=== PATIENT | male | born 1970 | race Caucasian/White ===

== ENCOUNTER 2016-12-15 19:14 | Inpatient (IN) ==
[2016-12-15] MEDS ORDERED: NS 1,000 ML IV ONE ×4 (19:34→22:51)
[2016-12-15 19:51] LABS: BASO% 0.2 % (0.0-0.8); EOS# 0.03 X1000 (0.0-0.7); EOS% 0.1 % (0.0-10.0); HEMATOCRIT 50.3 % (42.0-52.0); HEMOGLOBIN 17.7 g/dL (14.0-18.0); IMM GRAN# 0.09 X1000 (0.0-0.04); IMM GRAN% 0.4 % (0.0-0.5); LYMPH# 1.75 X1000 (1.2-3.4); LYMPH% 7.1 % (20.5-51.1); MANUAL DIFF NEEDED? NO; MCH 34.4 PG (27-31); MCHC 35.2 g/dL (33-37); MCV 97.9 FL (81-99); MONO# 2.11 X1000 (0.11-0.59); MONO% 8.6 % (1.7-9.3); MPV 10.2 FL (7.4-10.4); NEUT% 83.6 % (42.2-75.2); PLT 205 X1000 (130-400); RBC 5.14 XMIL (4.7-6.1)
[2016-12-15 20:34] LABS: ALBUMIN 5.4 g/dL (3.5-5.0); CALCIUM 10.1 mg/dL (8.8-10.2); MAGNESIUM 2.8 mg/dL (1.5-2.7); POTASSIUM 5.3 mmol/L (3.5-5.1); TOTAL BILIRUBIN 0.54 mg/dL (0.20-1.00); TOTAL PROTEIN 8.6 g/dL (6.3-8.3)
[2016-12-15] MEDS ORDERED: OFIRMEV 1000 MG/ISOTONIC SOLN 1,000 MG/100 ML BOTTLE IV ONE (20:51)
--- NOTE | 2016-12-15 20:55 | PROVIDER DOCUMENTATION ---
This chart was entered by Frida Casillas Scribe, acting as scribe for Carl Mays MD. HPI-General Adult - General Chief Complaint: Heat Related Stated Complaint: cramping, body ache Time Seen by Provider: 12/15/16 19:34 Source: patient Allergies/Adverse Reactions: Patient Allergies Allergy/AdvReac Type Severity Reaction Status Date / Time Sulfa (Sulfonamide Allergy RASH Verified 01/22/13 14:53 Antibiotics) Home Medications: Home Medication List Medication Instructions Recorded Confirmed Last Taken Type Benzonatate [Tessalon] 100 mg PO TID PRN PRN #30 capsule 08/05/15 Unknown Rx Folic Acid 1 mg PO DAILY #30 tablet 08/05/15 Unknown Rx Levofloxacin [Levaquin] 750 mg PO DAILY #7 tablet 08/05/15 Unknown Rx - History of Present Illness -Gen Adult Location of Pain/Injury: reports: generalized Pain Radiation: reports: no radiation Quality of Pain: reports: cramping Severity: reports: mild Onset/Duration: reports: last night Timing: reports: still present Associated Symptoms: reports: muscle aches, nausea, vomiting Similar Symptoms Previously?: No Recently seen or treated by another doctor?: No Review of Systems - Adult - REVIEW OF SYSTEMS - ADULT Constitutional: denies: chills, fever Eyes: reports: no symptoms reported Ears, Nose, Mouth & Throat: reports: no symptoms reported Cardiovascular: reports: no symptoms reported Respiratory: denies: cough, shortness of breath Gastrointestinal: reports: nausea, vomiting Genitourinary: denies: dysuria, hematuria Musculoskeletal: reports: muscle aches. denies: muscle weakness Integumentary: denies: skin sores/ulcer, skin thickening Neurological: reports: no symptoms reported Psychiatric: reports: no symptoms reported Endocrine: reports: no symptoms reported Hematologic/Lymphatic: reports: no symptoms reported Allergic/Immunologic: reports: no symptoms reported All Other Systems: Reviewed and Negative Past History - Adult - PAST MEDICAL HISTORY-ADULT Review of Records: reports: Nursing Assessment Review, Medications Reviewed Major Childhood Illnesses: reports: denies history - PRIOR SURGERIES/PROCEDURES Surgical/Procedure History: reports: none - IMMUNIZATION STATUS Childhood Immunizations: See Nurse Assessment Flu Vaccine: See Nurse Assessment - SOCIAL HISTORY Smoking: cigarettes Provider spent 3-5 mins advising pt. on dangers of tobacco.: Discussed manners to quit use, and f/u contacts for add'l counseling. Substance Use: none/never Alcohol Use Frequency: never Physical Exam-General - PHYSICAL EXAM-ADULT Initial Vital Signs Reviewed: Yes - CONSTITUTIONAL General Appearance: appears well, alert, no apparent distress - RESPIRATORY Respiratory: chest non-tender, lungs clear, normal breath sounds - CARDIOVASCULAR Cardiovascular: normal peripheral pulses, regular rate, rhythm, no edema - GASTROINTESTINAL (ABDOMEN) Abdominal Exam: non tender, soft - MUSCULOSKELETAL Extremity: normal inspection - SKIN Integumentary: normal color, normal turgor, warm/dry - PSYCHIATRIC Psych/Mental Status: normal mood/affect, normal thought content, normal thought process, oriented x 3 Progress - PLAN OF CARE/RESULTS Progress/Plan/Lab Results: Vital Signs - 8 hr 12/15/16 19:22 Temperature 97.2 F L Pulse Rate 112 H Respiratory Rate 26 H Blood Pressure 149/76 O2 Sat by Pulse Oximetry 100 Orders Category Date Time Status CBC WITH ELECTRONIC DIFF [HEME] Stat Lab 12/15/16 19:39 Ordered CMP [COMPREHENSIVE METABOLIC PANEL] [CHEM] Stat Lab 12/15/16 19:39 Ordered MAGNESIUM [CHEM] Stat Lab 12/15/16 19:39 Ordered UA [UA NIMS W/REFLEX CULT] [URINALYSIS] Stat Lab 12/15/16 19:34 Uncollected UDS [URINE DRUG SCREEN] Stat Lab 12/15/16 19:41 Uncollected 0.9% Sodium Chloride Inj [Ns] 1,000 ml Med 12/15/16 19:34 Active IV 999 mls/hr Ns 1000 ml IV Bolus X1 Med 12/15/16 19:41 Ordered 0.9% Sodium Chloride Inj [Ns] 1,000 ml IV 999 mls/hr Result Diagrams: 12/15/16 19:35 12/15/16 19:35 - REASSESSMENT Reassessment #1 Time Reassessed: 20:52 (pt states he does not use recreational drugs) Status: improving - EKG 1 Time of EKG reading by physician:: 19:24 EKG Read and Signed by:: Carl Mays EKG Interpretation (*Must complete 3 of following elements*): Abnormal Rate: 107 Rhythm: sinus tachycardia Comments: possible LAE 2 Time of EKG reading by physician:: 20:12 EKG Read and Signed by:: Carl Mays EKG Interpretation (*Must complete 3 of following elements*): Normal Rate: 86 Rhythm: NSR [place]: normal Departure - Departure Date of Disposition Decision: 12/15/16 Time of Disposition Decision: 20:53 DIAGNOSIS: PATRICIA (acute kidney injury) Rhabdomyolysis Qualifiers: Rhabdomyolysis type: non-traumatic Qualified Code(s): M62.82 - Rhabdomyolysis Disposition: ADMITTED INPATIENT 09 Certified Medical Emergency: Emergent Condition: Fair Referrals and Follow-Ups: None,PCP [Primary Care Provider] - - Critical Care Note This patient required my direct & personal management of CC.: No Attestation - Physician/ CRESENCIO Attestation Patient care was provided by Advanced Practice Provider:: No The physician spent face to face time with patient:: Yes Advanced Practice Provider documentation review:: Supervising physician onsite and consulted in the evaluation and care of this patient. The physician did have a face to face encounter with the patient. This chart was documented by the indicated scribe, (Frida Casillas Scribe) and accurately reflects the services I performed and decisions made by me, Carl Mays MD, as attested by the provider's signature.
[2016-12-15 21:35] LABS: URINE CULTURE NEEDED? NO; URINE SOURCE CLEAN CATCH
[2016-12-15 21:40] LABS: BILIRUBIN URINE NEGATIVE (NEGATIVE); BLOOD URINE LARGE (NEGATIVE); COLOR YELLOW; GLUCOSE URINE NEGATIVE (NEGATIVE); LEUKOCYTES URINE NEGATIVE (NEGATIVE); NITRITE URINE NEGATIVE (NEGATIVE); PH URINE 5.5; PROTEIN URINE 70 mg/dL (NEGATIVE); SP GRAVITY URINE 1.014; TURBIDITY URINE CLEAR (CLEAR); UROBILINOGEN URINE NORMAL (NORMAL)
[2016-12-15 21:42] LABS: URINE MICRO REVIEW NEEDED? YES
[2016-12-15 21:51] LABS: UR EPITHELIAL CELLS <10 /HPF (<10); URINE BACTERIA NEGATIVE /HPF; URINE RBC 20-40 /HPF (<10); URINE WBC <10 /HPF (<10)
[2016-12-15 21:54] LABS: UR AMPHETAMINES QUAL NONE DETECTED (NONE DETECT); UR BARBITUATES QUAL NONE DETECTED (NONE DETECT); UR BENZODIAZEPIN QUAL NONE DETECTED (NONE DETECT); UR CANNABINOIDS QUAL PRESUMPTIVE POSITIVE (NONE DETECT); UR COCAINE QUAL NONE DETECTED (NONE DETECT); UR METHADONE QUAL NONE DETECTED (NONE DETECT); UR OPIATES QUAL NONE DETECTED (NONE DETECT); UR OXYCODONE QUAL PRESUMPTIVE POSITIVE (NONE DETECT); UR PCP QUAL NONE DETECTED (NONE DETECT)
[2016-12-15 21:56] LABS: URINE CASTS GRANULAR PRESENT; URINE CRYSTALS NONE SEEN; URINE SMALL ROUND CELLS NONE SEEN
[2016-12-15] MEDS ORDERED: HYDROXYZINE PO PRN (22:51)
[2016-12-15] MEDS ORDERED: ZOFRAN IV PRN (22:51)
[2016-12-15] MEDS: HEPARIN SUBQ SCH (23:06)
[2016-12-15] MEDS: TYLENOL PO PRN (23:06)
--- NOTE | 2016-12-16 03:22 | HISTORY AND PHYSICAL ---
PRIMARY CARE PHYSICIAN: No primary care physician. REASON FOR ADMISSION: Confusion, weakness, and diffuse cramping for the last 2 days. HISTORY OF PRESENT ILLNESS: Mr. Ralph Edmonds is a 46-year-old man with no significant past medical history who is brought in by his daughter because yesterday he had protracted vomiting and was mildly confused and stuporous. Patient was last admitted here in July of 2015 for pneumonia, acute kidney injury, and sepsis. Today, the patient and the daughter report that he has been working outside in the intense heat, sweating excessively for the past 1 week. Two days ago, he started becoming weak and nauseous. Yesterday he started vomiting no less than 10 times and the daughter estimates that he vomited close to 2 gallons of vomitus. No blood or coffee grounds noted. She also reports that the patient had delayed response to her question and was intermittently "spaced out." Patient complained that over the last 36 hours, he has been having intense cramps to the point that he is unable to sleep at night. The cramps are intermittent, diffuse, and can last anywhere from 5-10 minutes and spontaneously go away, only to return in a few minutes. He denies any diarrhea, any abdominal pain. He denies any cardiorespiratory complaints. He noted that his urine output has been getting progressively less over the last 2 days and has been dark. No hematuria. No flank pain. No fever or chills. No headache, neck stiffness. No focal weakness, numbness, or tingling. REVIEW OF SYSTEMS: Patient denies any ingestion of any illicit substances or change in any medication. Positive findings per HPI. ALLERGIES: Sulfa. HOME MEDICATION: None. SOCIAL HISTORY: Smokes 1 pack a day. No alcohol or illicit drug use per the patient. SURGICAL HISTORY: Negative. FAMILY HISTORY: No diabetes or heart disease or cancer in first-degree relatives. LAB WORK: Blood white count 24,000, hemoglobin and hematocrit 17 and 50, platelets 205,000, 83% neutrophils. Sodium 135, potassium 5.3, carbon dioxide 16, anion gap is 32, BUN is 59, creatinine 4.8. CK 7500. Magnesium is 2.8. UDS positive for oxycodone and cannabinoids. Urinalysis: 20- 40 RBCs, large blood, trace ketones, granular casts noted. PHYSICAL EXAMINATION: GENERAL: Middle-aged man who is alert and oriented to person, place, and time. There is no obvious evidence of bradyphrenia. HEENT: Head is normocephalic, atraumatic. Eyes: DUONG, EOMI. He is anicteric, not pale. VITAL SIGNS: Blood pressure 152/100. Heart rate 93, down from 117 after a L bolus. Respiration rate is 16. Saturation 97% on room air, temperature is 97.2 degrees. NECK: Supple. No JVD or carotid bruit. No thyromegaly. CHEST: Clear to auscultation. Good air entry both lung borja. CARDIAC: First and sounds heard. No gallops, rubs. Rhythm is regular. ABDOMEN: Full, soft. No focal areas of tenderness. No mass or organomegaly. Bowel sounds are hypoactive. RECTAL: Deferred at this time. EXTREMITIES: Decreased pulse volume in all extremities but they are all symmetrical. No clubbing or peripheral cyanosis. No edema. NEURO: No asterixis, no focal deficits. Cranial nerves 2-12 grossly intact. SKIN: Mildly decreased skin turgor noted. No rash or breakdown or erythema. MUSCULOSKELETAL: Grossly normal. No muscle spasms palpated. ASSESSMENT: 1. Acute kidney injury secondary to dehydration. 2. Dehydration secondary to intractable vomiting presumably from uremia. 3. Rhabdomyolysis probably secondary to heat related exposure. 4. Heat exhaustion. 5. Leukocytosis, likely reactive. 6. Elevated blood pressure, ? hypertension. PLAN: Aggressively hydrate patient. If the patient's CK drops progressively, especially less than 5000, prognosis in this patient should be good, at least from that standpoint. If there is a corresponding decline in the patient's creatinine this even all goes well for the patient. Avoid any nephrotoxic drugs. Continue IV fluid resuscitation. At this point in time, for 2 reasons I will not start the patient on sodium bicarbonate. I do believe patient's renal function can be rectified with IV fluids, which could also pigment-induced nephropathy based on the fact that the patient has a normal baseline kidney function and the patient's CK is not that significantly elevated. Also, there is a shortage of sodium bicarbonate and the few samples we have will be needed for very severe cases, which this patient does not qualify for. Currently, the patient's nausea and GI symptoms have resolved, and he is able to tolerate orally at this point in time. His cramps have also resolved with fluids. Repeat BMP in the a.m. and CK to objectively confirm that patient is responding to our treatment. Also, follow patient's urine output and colored urine to document our treatment regarding the prevention on pigment-induced nephropathy. The patient's blood pressure is still elevated. A non-nephrotoxic antihypertensive should be considered in this patient. Patient is still using illicit drugs and this needs to be brought to his attention by dating. We will check the patient's CBC in a.m. I am pretty sure that this is more reactive than infectious, as patient does not have any evidence of an infectious etiology at this point in time. If it is still elevated, then further imaging studies need to be performed, i.e. abdominal or thoracic evaluation. cc: Janina Best MD
[2016-12-16] MEDS: PRILOSEC PO SCH (06:22)
[2016-12-16 06:36] LABS: MANUAL DIFF NEEDED? NO
[2016-12-16 06:44] LABS: BASO% 0.1 % (0.0-0.8); EOS# 0.03 X1000 (0.0-0.7); EOS% 0.2 % (0.0-10.0); HEMOGLOBIN 14.2 g/dL (14.0-18.0); IMM GRAN# 0.04 X1000 (0.0-0.04); IMM GRAN% 0.3 % (0.0-0.5); LYMPH% 12.1 % (20.5-51.1); MCH 34.6 PG (27-31); MCHC 34.6 g/dL (33-37); MONO# 1.17 X1000 (0.11-0.59); MONO% 7.9 % (1.7-9.3); MPV 10.3 FL (7.4-10.4); NEUT% 79.4 % (42.2-75.2); PLT 158 X1000 (130-400)
[2016-12-16 07:13] LABS: ALBUMIN 3.8 g/dL (3.5-5.0); CALCIUM 8.6 mg/dL (8.8-10.2); POTASSIUM 3.9 mmol/L (3.5-5.1); TOTAL BILIRUBIN 0.58 mg/dL (0.20-1.00); TOTAL PROTEIN 6.2 g/dL (6.3-8.3)
--- NOTE | 2016-12-16 07:48 | EKG Report ---
Test Performed on : 12/15/2016 7:24:17 PM Test Reason : MUSCLE CRAMPS Blood Pressure : / mmHG Vent. Rate : 107 BPM Atrial Rate : 107 BPM P-R Int : 126 ms QRS Dur : 078 ms QT Int : 336 ms P-R-T Axes : 081 085 059 degrees QTc Int : 448 ms Sinus tachycardia. Possible Left atrial enlargement Borderline ECG When compared with ECG of 03-AUG-2015 11:48, No significant change was found Unconfirmed Result
[2016-12-16] MEDS: HEPARIN SUBQ SCH ×2 (11:32→22:28)
[2016-12-16] MEDS: LIORESAL PO PRN ×2 (12:52→22:28)
--- NOTE | 2016-12-16 15:09 | PROGRESS NOTE ---
DATE: 12/16/2016 SUBJECTIVE: Patient reports feeling fine. Less muscle cramping although he is feeling tired. He denies any fever or chills. OBJECTIVE: Vital Signs: Temperature 97.8 degrees, heart rate 65, respiratory 19, blood pressure 121/66, O2 saturation 99% on room air. General Examination: This is a 46-year-old male, lying in bed, in no acute distress. HEENT: Head is normocephalic, atraumatic. Anicteric sclerae and pale conjunctivae. Mucous membranes moist. Neck: Supple. No JVD noted. No carotid bruits. No lymphadenopathy. No thyromegaly. Cardiovascular: S1, S2 heard. No murmurs, gallops, or rubs. Regular rate and rhythm. Respiratory: Clear bilaterally to auscultation. No work of breathing or using accessory muscles. Abdomen: Soft, nontender to palpation. Bowel sounds present. No organomegaly. Extremities: No clubbing, cyanosis, or edema. Peripheral pulses present in both legs. Neurological: Patient alert and oriented x3. Moves 4 extremities. LABORATORY DATA: White cell count 14.89 with platelets of 158,000 and a BMP shows creatinine 2.1 with CK of 9000. ASSESSMENT AND PLAN: 1. Acute kidney injury secondary to dehydration. That condition is much better so we are going to continue with IV fluids and check BMP daily. 2. Rhabdomyolysis probably secondary to heat shock. The CK is still high but renal function is getting better which is reassurance. At this point, we will continue with IV fluids and will check BMP tomorrow. 3. Heat exhaustion, probably the reason why this patient has leukocytosis on admission that now is getting much better so we will check CBC daily as well. 4. Hypertension, well controlled. cc: Luis Antonio Carrasco MD
[2016-12-16] MEDS: NS 1,000 ML IV SCH ×2 (18:05→22:27)
[2016-12-16] MEDS: TYLENOL PO PRN (22:28)
[2016-12-17 06:06] LABS: MANUAL DIFF NEEDED? NO
[2016-12-17 06:09] LABS: BASO% 0.4 % (0.0-0.8); EOS# 0.07 X1000 (0.0-0.7); EOS% 0.9 % (0.0-10.0); HEMOGLOBIN 13.1 g/dL (14.0-18.0); LYMPH# 2.23 X1000 (1.2-3.4); LYMPH% 29.6 % (20.5-51.1); MCH 34.4 PG (27-31); MCHC 33.6 g/dL (33-37); MCV 102.4 FL (81-99); MONO# 0.72 X1000 (0.11-0.59); MONO% 9.5 % (1.7-9.3); MPV 10.5 FL (7.4-10.4); NEUT% 59.6 % (42.2-75.2); PLT 126 X1000 (130-400); RBC 3.81 XMIL (4.7-6.1)
[2016-12-17 06:24] LABS: AGAP 9; BUN 26 mg/dL (8-22); CALCIUM 8.7 mg/dL (8.8-10.2); CHLORIDE 106 mmol/L (98-107); COSMO 290; POTASSIUM 4.4 mmol/L (3.5-5.1); SODIUM 143 mmol/L (136-145); TCO2 28 mmol/L (25-35)
[2016-12-17] MEDS: NS 1,000 ML IV SCH ×4 (06:43→21:49)
[2016-12-17] MEDS: PRILOSEC PO SCH (07:02)
[2016-12-17] MEDS: TYLENOL PO PRN (07:02)
[2016-12-17] MEDS: HEPARIN SUBQ SCH ×3 (09:48→21:49)
--- NOTE | 2016-12-17 13:02 | PROGRESS NOTE ---
DATE: 12/17/2016 Patient reports feeling fine. Good appetite. Patient is walking around. OBJECTIVE: Vital Signs: Temperature 98.0 degrees, heart rate 61, respiratory rate 16, blood pressure 122/65, O2 saturation 99% on room air. General: This is a 46-year-old male, lying in bed, in no acute distress. HEENT: Head is normocephalic, atraumatic. Anicteric sclerae and pale conjunctivae. Mucous membranes moist. Neck: Supple. No JVD noted. No carotid bruits. No lymphadenopathy. No thyromegaly. Cardiovascular: S1, S2 heard. No murmurs, gallops, or rubs. Regular rate and rhythm. Respiratory: Clear bilaterally to auscultation. No work of breathing or using accessory muscles. Abdomen: Soft, nontender to palpation. Bowel sounds present. No organomegaly. Extremities: No clubbing, cyanosis, or edema. Peripheral pulses present in both legs. Neurological: Patient alert and oriented x3. Moves 4 extremities. LABORATORY DATA: White cell count 7.54, hemoglobin 13.1, hematocrit 39.0, platelets 126,000. BMP completely unremarkable including creatinine which is 1.0 and CK is 7747. ASSESSMENT AND PLAN: 1. Acute kidney injury secondary to dehydration resolved and creatinine back to normal. 2. Rhabdomyolysis possible secondary to shock. CK is still high. Suggested today there was a big drop of 2000 from [id number]. Because the patient does not have any primary care physician to check CK I prefer to keep him 1 more day and see if I see that this CK is trending down will let him go. 3. Heat exhaustion. That is possibly the reason why this patient has reactive leukocytosis which is back to normal today. 4. Hypertension well controlled. cc: Luis Antonio Carrasco MD
[2016-12-18] MEDS: HEPARIN SUBQ SCH (06:35)
[2016-12-18] MEDS: PRILOSEC PO SCH (06:35)
[2016-12-18] MEDS: NS 1,000 ML IV SCH ×2 (06:35→09:11)
[2016-12-18 07:06] LABS: MANUAL DIFF NEEDED? NO
[2016-12-18 07:08] LABS: BASO% 0.4 % (0.0-0.8); EOS# 0.12 X1000 (0.0-0.7); EOS% 1.5 % (0.0-10.0); HEMATOCRIT 38.2 % (42.0-52.0); LYMPH% 25.1 % (20.5-51.1); MCH 34.8 PG (27-31); MCV 102.1 FL (81-99); MONO# 0.66 X1000 (0.11-0.59); MONO% 8.3 % (1.7-9.3); MPV 10.4 FL (7.4-10.4); NEUT% 64.7 % (42.2-75.2); PLT 128 X1000 (130-400); RBC 3.74 XMIL (4.7-6.1)
[2016-12-18 07:27] LABS: AGAP 8; BUN 15 mg/dL (8-22); CALCIUM 8.7 mg/dL (8.8-10.2); CHLORIDE 105 mmol/L (98-107); COSMO 283; POTASSIUM 4.5 mmol/L (3.5-5.1); SODIUM 142 mmol/L (136-145); TCO2 29 mmol/L (25-35)
[2016-12-18 07:51] VITALS: BP 121/67
--- NOTE | 2016-12-19 03:25 | DISCHARGE SUMMARY ---
ADMISSION DATE: 12/15/2016 DISCHARGE DATE: 12/18/2016 DISCHARGE DIAGNOSES: 1. Acute kidney injury, resolved. 2. Rhabdomyolysis secondary to heat shock, improved. 3. Heat exhaustion, resolved. 4. Hypertension, under control. PROCEDURES: None. CONSULTATIONS: None. HOSPITAL COURSE: This is a 46-year-old, male with no significant past medical history who was brought in by his daughter because he started having protracted nausea and vomiting. He was mildly confused and stuporous. Patient's family reported that he was working outside in the intense heat, sweating profusely for the past week. He started vomiting like 10-12 times the day of admission and the day before. Patient has been complaining of muscle pain all over. Patient, here in the ER, was found to have an elevated CK with acute kidney injury and leukocytosis. He was admitted for further evaluation and treatment. The patient has been started on aggressive fluid resuscitation and finally, after 2 days, renal function was completely back to normal. Leukocytosis, which I think was reactive to this condition, was back to normal without using any antibiotics. CK was higher at 9000 and was trending down next day to 7000. On the day of discharge, it was 5000. I think this is going to trend down. That number is going to trend down. The patient is being discharged in stable condition. DISCHARGE PHYSICAL EXAMINATION: Vital Signs: Temperature 98.3 degrees, heart rate 53, respiratory rate 20, blood pressure 123/67, O2 saturation 99% on room air. General Examination: This is a 46-year-old, male, lying in bed, in no acute distress. HEENT: Head is normocephalic and atraumatic. Anicteric sclerae and pale conjunctivae. Mucous membranes moist. Neck: Supple. No JVD noted. No carotid bruits. No lymphadenopathy. No thyromegaly. Cardiovascular Examination: S1 and S2 heard. No murmurs, gallops, or rubs. Regular rate and rhythm. Respiratory Examination: Clear bilaterally to auscultation. No work of breathing or using accessory muscles. Abdomen: Soft, nontender to palpation. Bowel sounds present. No organomegaly. Extremities: No clubbing, cyanosis, or edema. Peripheral pulses present in both legs. Neurological Examination: Patient is alert and oriented x3. Able to move 4 extremities. Cranial nerves 2-12 grossly normal. DISCHARGE DISPOSITION: Home to self-care. DISCHARGE MEDICATIONS: None. DISCHARGE INSTRUCTIONS: Patient is advised to drink water and drink plenty of fluids. Patient recommended to start working next Monday. FOLLOWUP: None required at this time. DISCHARGE TIME: 25 minutes. cc: Luis Antonio Carrasco MD
== END 2016-12-18 13:19 | disposition home or self-care (01) ==
LOC: ED 19:14 → SUATTDRO 22:23 → 3N 22:23
PROVIDERS: ATTEND Internal Medicine